=== PATIENT | female | born 1995 | race Caucasian/White ===

== ENCOUNTER 2017-12-09 17:33 | Emergency (ER) | payer OTHER ==
[2017-12-09] MEDS ORDERED: Ibuprofen TAB* 600 MG PO ONE (18:29)
--- NOTE | 2017-12-09 18:42 | ED ---
Throat Pain/Nasal Congestion - HPI Summary HPI Summary: Patient in emergency department today complaining of subjective fever body aches swollen subacute mental gland and sore throat - History of Current Complaint Chief Complaint: EDFluSymptoms Time Seen by Provider: 12/09/17 18:25 Hx Obtained From: Patient Onset/Duration: Sudden Onset, Lasting Days Severity: Moderate Cough: Nonproductive - Allergies/Home Medications Allergies/Adverse Reactions: Allergies Allergy/AdvReac Type Severity Reaction Status Date / Time No Known Allergies Allergy Verified 12/09/17 18:57 PMH/Surg Hx/FS Hx/Imm Hx Previously Healthy: Yes - Cancer History Hx Hematologic Symptoms: No Hx Chemotherapy: No Hx Radiation Therapy: No Hx Palliative Cancer Treatment: No - Surgical History Hx Anesthesia Reactions: No - Immunization History Date of Influenza Vaccine: none for Hx Pertussis Vaccination: No Immunizations Up to Date: No Infectious Disease History: No Infectious Disease History: Denies: Traveled Outside the [place] in Last 30 Days - Family History Known Family History: Positive: None - Social History Occupation: Employed Part-time Lives: With Family Alcohol Use: None Hx Substance Use: No Substance Use Type: Reports: None Hx Tobacco Use: No Review of Systems Positive: Fever, Chills, Fatigue Eyes: Negative Positive: Sore Throat, Other - swelling in the submental lymph Cardiovascular: Negative Positive: Cough Positive: Vomiting Genitourinary: Negative - did vomit last night 1 Positive: Arthralgia, Myalgia Skin: Negative Neurological: Other Positive: Headache Psychological: Normal All Other Systems Reviewed And Are Negative: Yes Physical Exam Triage Information Reviewed: Yes Vital Signs On Initial Exam: Initial Vitals Temp Pulse Resp BP Pulse Ox 100.2 F 94 18 108/63 99 12/09/17 17:55 12/09/17 17:55 12/09/17 17:55 12/09/17 17:55 12/09/17 17:55 Vital Signs Reviewed: Yes Appearance: Positive: Well-Nourished, Ill-Appearing, Pain Distress Skin: Positive: Warm, Skin Color Reflects Adequate Perfusion Head/Face: Positive: Normal Head/Face Inspection Eyes: Positive: Normal, EOMI ENT: Positive: Normal ENT inspection, Hearing grossly normal, Pharynx normal, Nasal congestion, Nasal drainage, TMs normal, Uvula midline, Other - Submental swollen lymph and tenderness. Negative: Tonsillar swelling, Tonsillar exudate, Trismus, Muffled voice, Hoarse voice, Dental tenderness, Sinus tenderness Neck: Positive: Supple, Nontender, No Lymphadenopathy Respiratory/Lung Sounds: Positive: Clear to Auscultation, Breath Sounds Present Cardiovascular: Positive: Normal, RRR, Pulses are Symmetrical in both Upper and Lower Extremities, S1, S2 Musculoskeletal: Positive: Normal, Strength/ROM Intact Neurological: Positive: Normal, Sensory/Motor Intact, Alert, Oriented to Person Place, Time, CN Intact II-III Psychiatric: Positive: Normal AVPU Assessment: Alert - Carole Coma Scale Best Eye Response: 4 - Spontaneous Best Motor Response: 6 - Obeys Commands Best Verbal Response: 5 - Oriented Coma Scale Total: 15 Diagnostics - Vital Signs Vital Signs Temp Pulse Resp BP Pulse Ox 12/09/17 17:55 100.2 F 94 18 108/63 99 - Laboratory Result Diagrams: 12/09/17 19:13 12/09/17 19:13 Lab Statement: Any lab studies that have been ordered have been reviewed, and results considered in the medical decision making process. Re-Evaluation - Re-Evaluation First Eval Change: Improved - Patient feels better with ibuprofen reviewed lab results with Dr. Hall who would like me to review this patient's case with Dr. Roman Second Eval Change: Improved - Patient continued his to feel well look forward to discharge chest x-ray was normal reviewed the case with Dr. Correa who feels this to be related to a viral illness and suggest follow-up in 1-2 weeks for repeat labs follow-up in emergency department return as needed for increased pain fevers chills or any change in symptoms EENT Course/Dx - Course Assessment/Plan: Viral illness will be treated with increased fluids rest Tylenol and ibuprofen per Dr. Roman patient follow up with primary care doctor or can be followed up by Dr. Roman's office in 1 week for repeat labs return to the emergency department for any worsening symptoms - Diagnoses Provider Diagnoses: Viral illness, Lymphadenopathy, submental Is Visit Related: No Discharge - Discharge Plan Condition: Stable Disposition: HOME Patient Education Materials: Viral Syndrome (ED) Forms: *Work Release Referrals: Raji Buchanan MD [Primary Care Provider] - 1 Week
[2017-12-09 19:25] LABS: Hematocrit 44 % (35-47); Hemoglobin 15.2 g/dl (12.0-16.0); Mean Corpuscular HGB Conc 34 g/dl (31-36); Mean Corpuscular Hemoglobin 30 pg (27-31); Mean Corpuscular Volume 86 fL (80-97); Mean Platelet Volume 8 um3 (7.4-10.4); Platelet Count 214 10^3/ul (150-450); Red Blood Count 5.15 10^6/ul (4.0-5.4); Red Cell Distribution Width 14 % (10.5-15); White Blood Count 2.2 10^3/ul (3.5-10.8)
[2017-12-09 19:41] LABS: EGFR Non-African American 69.1 (>60)
[2017-12-09 20:02] LABS: Monocytes % 23 % (0-7)
--- NOTE | 2017-12-09 21:00 | RAD ---
Indication: Fever. 2 views of the chest including dual energy PA views demonstrates no mediastinal shift. Heart is of normal size and configuration. Lung lynn are clear. IMPRESSION: No active cardiopulmonary disease is noted.
[2017-12-09 21:24] VITALS: BP 128/73
== END 2017-12-09 21:23 | disposition home or self-care (01) ==
LOC: ED 17:33
DX: B34.9 Viral infection, unspecified (principal); R59.1 Generalized enlarged lymph nodes
CPT/HCPCS: 36415; 71046; 80053; 83605; 84702; 85025; 85060; 85652; 86140; 86308; 87502; 87651; 99284; A9270-GY